=== PATIENT | female | born 1940 | race Caucasian/White ===

== ENCOUNTER 2018-07-08 18:09 | Inpatient (IN) | payer MEDICARE, MEDICAID | END 2018-07-11 16:06 | disposition home or self-care (01) | LOC: ER 18:09 → SUR 3N 07-09 00:45 | DX: A41.9 Sepsis, unspecified organism (principal); N17.0 Acute kidney failure with tubular necrosis; N39.0 Urinary tract infection, site not specified; G62.9 Polyneuropathy, unspecified; N18.9 Chronic kidney disease, unspecified; E78.5 Hyperlipidemia, unspecified; Z90.5 Acquired absence of kidney ==

== ENCOUNTER 2019-02-13 08:43 | Day surgery (SDC) | payer MEDICARE, MEDICAID ==
[2019-02-11 16:06] LABS: BASOPHILS # (AUTO) 0.1 X10'3 (0-0.2); BASOPHILS % (AUTO) 0.3 % (0-1); EOSINOPHILS % (AUTO) 0 % (0-6); HEMATOCRIT 42.9 % (35.0-45.0); HEMOGLOBIN 14.5 g/dl (12.0-16.0); LYMPHOCYTES % (AUTO) 12.4 % (21-51); MEAN CORPUSCULAR HGB CONC 33.8 g/dL (33.0-36.5); MEAN CORPUSCULAR VOLUME 82.8 FL (78-98); MEAN PLATELET VOLUME 8.3 FL (7.4-10.4); MONOCYTES # (AUTO) 0.8 X10'3 (0-0.9); MONOCYTES % (AUTO) 5.2 % (2-12); NEUTROPHILS # (AUTO) 13.3 X10'3 (1.8-7.7); NEUTROPHILS % (AUTO) 82.1 % (42-75); PLATELET COUNT 362 X10'3 (140-440); RED BLOOD COUNT 5.18 X10'6 (4.20-5.60); RED CELL DISTRIBUTION WIDTH 14.6 % (11.5-14.5); WHITE BLOOD COUNT 16.2 X10'3 (4.5-11.0)
[2019-02-11 16:22] LABS: PARTIAL THROMBOPLASTIN TIME 27 SECONDS (22-32)
[2019-02-11 16:25] LABS: ALANINE AMINOTRANSFERASE 20 U/L (12-78); ALBUMIN 3.9 G/DL (3.4-5.0); ALBUMIN/GLOBULIN RATIO 1.1 (1.1-1.5); ALKALINE PHOSPHATASE 99 IU/L (46-116); ANION GAP 6 (8-16); ASPARTATE AMINO TRANSFERASE 8 U/L (10-37); BILIRUBIN,TOTAL 0.4 MG/DL (0.1-1.0); BLOOD UREA NITROGEN 26 MG/DL (7-18); BUN/CREATININE RATIO 19.1 (6.6-38.0); CALCIUM 9.7 MG/DL (8.5-10.1); CHLORIDE 104 MMOL/L (99-107); CREATININE 1.36 MG/DL (0.40-0.90); POTASSIUM 3.9 MMOL/L (3.5-5.1); SODIUM 140 MMOL/L (135-145); TOTAL PROTEIN 7.3 G/DL (6.4-8.2); eGFR 38 ML/MIN
[2019-02-11 16:27] LABS: GLUCOSE 121 MG/DL (70-104)
[2019-02-13] VITALS (10 sets, daily range): BP systolic 127–155; BP diastolic 57–93
[~2019-02-13] VITALS: Ht 167.6 cm; Wt 166.1 kg
[~2019-02-13 08:43] MED LIST: ASPI-1265 PO; ATOR40TA PO; CYCL-394 PO; DULO-31 PO; GABA-532 PO; HYDR-3972 PO
[2019-02-13] MEDS ORDERED: CHOL400T14 PO (09:04)
[2019-02-13] MEDS ORDERED: HYDR25TA4 PO (09:04)
[2019-02-13] MEDS ORDERED: normal saline 1,000 ML IV SCH (09:10)
[2019-02-13] MEDS ORDERED: nitroGLYCERIN 0.4mg SUBLingual tab SL PRN ×2 (09:10→12:25)
[2019-02-13] MEDS ORDERED: LIDOcaine/PRILOcaine 5gm cream TP ONE (09:10)
[2019-02-13] MEDS: LORazepam 0.5 MG tablet PO PRN ×2 (09:14→09:38)
[2019-02-13] MEDS: diphenhydrAMINE 25mg capsule PO PRN ×2 (09:14→09:37)
[2019-02-13] MEDS ORDERED: LIDOcaine 1% (10mg/ml)w/preservative injection 20ml MDV ONE (11:01)
[2019-02-13] MEDS ORDERED: midazolam 2 mg/2 ml injection ONE (11:01)
[2019-02-13] MEDS ORDERED: heparin 1,000unit/ml 10ml vial 10 ML ONE (11:01)
[2019-02-13] MEDS ORDERED: verapamil 2.5 mg/ml inj IV ONE (11:01)
[2019-02-13] MEDS ORDERED: iohexol 350 MG/ML 50ML vial IV ONE (11:01)
[2019-02-13] MEDS ORDERED: nitroGLYCERIN-Tridil 50MG/D5W 250 ML IV ONE (11:01)
[2019-02-13] MEDS ORDERED: fentaNYL/PF 50MCG/1 ML 2ML syringe ONE (11:01)
[2019-02-13] MEDS ORDERED: iohexol 350MG/ML 100ml bottle IV ONE (11:01)
[2019-02-13] MEDS ORDERED: hydrALAZINE 20mg/ml inj. IV ONE (11:50)
[2019-02-13] MEDS ORDERED: HYDROcodone/acetaminophen 5mg/325mg tablet PO PRN (12:20)
[2019-02-13] MEDS ORDERED: normal saline 1000ml 1,000 ML IV SCH (12:20)
[2019-02-13] MEDS ORDERED: ondansetron/PF 4mg/2ml inj IV PRN (12:20)
[2019-02-13] MEDS ORDERED: HYDROcodone/acetaminophen 10/325mg tab PO PRN (12:25)
[2019-02-13] MEDS ORDERED: OXAZEpam 15mg capsule PO PRN (12:25)
[2019-02-13] MEDS ORDERED: proCHLORperazine 10 MG/2 ml inj IV PRN (12:25)
== END 2019-02-13 18:20 | disposition home or self-care (01) ==
LOC: SSTAY O 08:43
PROVIDERS: ATTEND Internal Medicine Cardiovascular Disease
DX: Z01.818 Encounter for other preprocedural examination (principal); I25.10 Atherosclerotic heart disease of native coronary artery without angina pectoris; I10 Essential (primary) hypertension; E78.5 Hyperlipidemia, unspecified; M10.9 Gout, unspecified; Z90.5 Acquired absence of kidney; Z79.899 Other long term (current) drug therapy; F17.210 Nicotine dependence, cigarettes, uncomplicated; G47.30 Sleep apnea, unspecified; Z79.82 Long term (current) use of aspirin; Z79.01 Long term (current) use of anticoagulants; Z91.09 Other allergy status, other than to drugs and biological substances; Z91.040 Latex allergy status; Z88.8 Allergy status to other drugs, medicaments and biological substances
CPT/HCPCS: 36415; 71046; 80053; 85025; 85610; 85730; 93005; 93458; 99152; 99153; C1769; C1894; J0360; J1644; J2001; J2250; J3010; J7030; Q0163; Q9967; A4620; A6258; C1760; J3490

== ENCOUNTER 2019-03-24 12:34 | Emergency (ER) | payer MEDICARE, MEDICAID ==
[~2019-03-24] VITALS: Ht 167.6 cm; Wt 145.4 kg
[~2019-03-24 12:34] MED LIST changes: -ASPI-1265 PO; -ATOR40TA PO; +ATOR40TA71 PO; +CHOL500050 PO; +CYCL-1 PO; -CYCL-394 PO; +HYDR25TA4 PO; +METO-395 PO
--- NOTE | 2019-03-24 14:30 | NUR ---
Spoke with Vicky, states patient has come in to the ER with SOB and needs O2, patient was discharged Monday with O2 that son Eren had arranged, left voice message for keanu Jasno
--- NOTE | 2019-03-24 14:40 | NUR ---
Spoke with patient at bedside along with Dr. Moy, patient states that portable oxygen was delivered at the bedside on Monday but did not know it would not last until through the weekend, she did not call [facility] as instructed when she got home to notify that she was home so concentrator could be delivered, placed call to [facility], waiting for call back
--- NOTE | 2019-03-24 14:46 | NUR ---
Spoke with son Eren, states that he instructed patient several times to call [facility] to have oxygen delivered, he states that patient stated that she did not want to bother anyone over the weekend Spoke with Hilton at [facility], explained patient status, states he will deliever portable oxygen tank to ER BEd [facility] and then will deliver concentrator to patients home, notified nurse Rojo
--- NOTE | 2019-03-24 14:58 | NUR ---
[facility] WILL BRING PORTABLE TANK AND WILL DELIVER CONCENTRATOR AT HOME WITHIN NEXT HOUR
[2019-03-24 16:30] VITALS: BP 141/62
== END 2019-03-24 16:32 | disposition home or self-care (01) ==
LOC: ER 12:35
DX: R06.02 Shortness of breath (principal); E78.00 Pure hypercholesterolemia, unspecified; I10 Essential (primary) hypertension; M19.90 Unspecified osteoarthritis, unspecified site; G89.29 Other chronic pain; Z86.73 Personal history of transient ischemic attack (TIA), and cerebral infarction without residual deficits; Z90.49 Acquired absence of other specified parts of digestive tract; Z90.89 Acquired absence of other organs; Z99.81 Dependence on supplemental oxygen; Z98.890 Other specified postprocedural states; Z88.6 Allergy status to analgesic agent; Z88.8 Allergy status to other drugs, medicaments and biological substances; Z91.018 Allergy to other foods
CPT/HCPCS: 71045; 99284

== ENCOUNTER 2019-04-25 10:42 | Day surgery (SDC) | payer MEDICARE, MEDICAID ==
[~2019-04-25] VITALS: Ht 167.6 cm; Wt 165.5 kg
[~2019-04-25 10:42] MED LIST changes: +AMOX-580 PO; +ASPI-611 PO; -DULO-31 PO; +DULO60CA65 PO
[2019-04-25 11:00] VITALS: BP 135/63
[2019-04-25] MEDS ORDERED: normal saline 1000ml 1,000 ML IV SCH ×2 (11:05→13:48)
[2019-04-25] MEDS ORDERED: HYDR50TA3 PO (11:38)
[2019-04-25] MEDS ORDERED: ONDA8TAB6 PO (11:41)
[2019-04-25] MEDS ORDERED: AXIT5TAB PO (11:42)
[2019-04-25] MEDS ORDERED: LIDOcaine 1%/PF 5ML 10 MG/ML VIAL ONE (12:19)
[2019-04-25] MEDS ORDERED: midazolam 2 mg/2 ml injection ONE (12:59)
[2019-04-25] MEDS ORDERED: heparin sodium, porcine/PF 100unit/ml 5ML syringe ONE (12:59)
[2019-04-25] MEDS ORDERED: fentaNYL/PF 50MCG/1 ML 2ML syringe ONE (12:59)
[2019-04-25] MEDS ORDERED: cefazolin/dext.iso 2gm/100ml 100 ML IV ONE (13:40)
[2019-04-25 13:52] VITALS: BP 142/56
[2019-04-25 14:00] VITALS: BP 159/45
[2019-04-25] MEDS ORDERED: cefazolin/dext.iso 2gm/50ml 50 ML IV ONE (14:00)
[2019-04-25 14:15] VITALS: BP 162/87
[2019-04-25 14:30] VITALS: BP 161/73
[2019-04-25 14:50] VITALS: BP 156/76
== END 2019-04-25 15:20 | disposition home or self-care (01) ==
LOC: SSTAY O 10:42
PROVIDERS: ATTEND Radiology Vascular & Interventional Radiology
DX: C64.1 Malignant neoplasm of right kidney, except renal pelvis (principal); Z85.118 Personal history of other malignant neoplasm of bronchus and lung; Z90.2 Acquired absence of lung [part of]; Z88.8 Allergy status to other drugs, medicaments and biological substances; Z91.018 Allergy to other foods; Z79.82 Long term (current) use of aspirin; Z79.899 Other long term (current) drug therapy; Z90.49 Acquired absence of other specified parts of digestive tract; Z98.890 Other specified postprocedural states; Z90.5 Acquired absence of kidney; Z87.891 Personal history of nicotine dependence
CPT/HCPCS: 36561; 76937; 77001; 99152; 99153; C1769; C1788; C1894; J1642; J2250; J3010

== ENCOUNTER 2019-07-22 13:14 | Emergency (ER) | payer MEDICARE, MEDICAID ==
[~2019-07-22] VITALS: Ht 162.6 cm; Wt 182.0 kg
[~2019-07-22 13:14] MED LIST changes: -AMOX-580 PO; +AXIT5TAB PO; -CYCL-1 PO; -GABA-532 PO; -HYDR25TA4 PO; +HYDR50TA3 PO; +LIDOcaine 1% W/epiNEPHrine 1:100,000 20ml vial ONE; +ONDA8TAB6 PO
[2019-07-22 13:22] VITALS: BP 153/64
[2019-07-22] MEDS ORDERED: DOXY100C76 PO (16:29)
== END 2019-07-22 16:54 | disposition home or self-care (01) ==
LOC: ER 13:16
DX: S01.01XA Laceration without foreign body of scalp, initial encounter (principal); S13.4XXA Sprain of ligaments of cervical spine, initial encounter; E78.00 Pure hypercholesterolemia, unspecified; I10 Essential (primary) hypertension; M19.90 Unspecified osteoarthritis, unspecified site; G89.29 Other chronic pain; Z90.49 Acquired absence of other specified parts of digestive tract; Z90.89 Acquired absence of other organs; Z98.890 Other specified postprocedural states; Z86.73 Personal history of transient ischemic attack (TIA), and cerebral infarction without residual deficits; Z88.8 Allergy status to other drugs, medicaments and biological substances; Z91.018 Allergy to other foods; Z79.82 Long term (current) use of aspirin; Z79.899 Other long term (current) drug therapy; W19.XXXA Unspecified fall, initial encounter; Y93.89 Activity, other specified; Y92.89 Other specified places as the place of occurrence of the external cause; Y99.8 Other external cause status
CPT/HCPCS: 12002; 12004; 70450; 72125; 99285

== ENCOUNTER 2020-05-07 10:12 | Emergency (ER) | payer MEDICARE, MEDICAID ==
[~2020-05-07] VITALS: Ht 170.2 cm; Wt 140.3 kg
[~2020-05-07 10:12] MED LIST changes: -HYDR50TA3 PO; +HYDR50TA4 PO; -LIDOcaine 1% W/epiNEPHrine 1:100,000 20ml vial ONE
[2020-05-07 11:17] LABS: BASOPHILS # (AUTO) 0.1 X10'3 (0-0.2); BASOPHILS % (AUTO) 0.6 % (0-1); EOSINOPHILS # (AUTO) 1.1 X10'3 (0-0.9); EOSINOPHILS % (AUTO) 10.3 % (0-6); HEMATOCRIT 36.3 % (35.0-45.0); HEMOGLOBIN 12.2 g/dl (12.0-16.0); LYMPHOCYTES # (AUTO) 1.9 X10'3 (1.1-4.8); LYMPHOCYTES % (AUTO) 18.4 % (21-51); MEAN CORPUSCULAR HEMOGLOBIN 27.1 PG (27.0-31.0); MEAN CORPUSCULAR HGB CONC 33.7 g/dL (33.0-36.5); MEAN CORPUSCULAR VOLUME 80.4 FL (78-98); MEAN PLATELET VOLUME 7.1 FL (7.4-10.4); MONOCYTES # (AUTO) 0.9 X10'3 (0-0.9); MONOCYTES % (AUTO) 9.1 % (2-12); NEUTROPHILS # (AUTO) 6.3 X10'3 (1.8-7.7); NEUTROPHILS % (AUTO) 61.6 % (42-75); PLATELET COUNT 209 X10'3 (140-440); RED BLOOD COUNT 4.52 X10'6 (4.20-5.60); RED CELL DISTRIBUTION WIDTH 14.4 % (11.5-14.5); WHITE BLOOD COUNT 10.2 X10'3 (4.5-11.0)
[2020-05-07 11:36] LABS: CLARITY,URINE SLIGHTLY CLOUDY (Clear); COLOR,URINE YELLOW (Yellow); GLUCOSE, URINE NEGATIVE (Neg); KETONES,URINE NEGATIVE (Neg); LEUKOCYTE ESTERASE ,URINE NEGATIVE (Neg); NITRITES, URINE NEGATIVE (Neg); OCCULT BLOOD,URINE NEGATIVE (Neg); PH,URINE 5.5 (4.8-8.0); PROTEIN,URINE NEGATIVE (Neg); UROBILINOGEN,URINE 0.2 E.U/dL (0.2-1.0)
[2020-05-07 11:48] LABS: ALBUMIN 3.4 G/DL (3.4-5.0); ANION GAP 8 (8-16); BLOOD UREA NITROGEN 28 MG/DL (7-18); BUN/CREATININE RATIO 20.7 (6.6-38.0); CALCIUM 10.1 MG/DL (8.5-10.1); CHLORIDE 105 MMOL/L (99-107); CREATININE 1.35 MG/DL (0.40-0.90); GLUCOSE 104 MG/DL (70-104); POTASSIUM 4.3 MMOL/L (3.5-5.1); SODIUM 138 MMOL/L (135-145); TOTAL CARBON DIOXIDE 25.5 MMOL/L (24-32); TROPONIN I < 0.04 NG/ML (0.0-0.05); eGFR 38 ML/MIN
[2020-05-07 12:03] LABS: UA COLLECTION TYPE NON-SPECIFIED
[2020-05-07 12:05] LABS: SQUAMOUS EPITHELIAL CELL,UR MANY /LPF (FEW)
[2020-05-07 12:06] LABS: RBC,URINE 0-2 /HPF (0-2); WBC,URINE 0-4 /HPF (0-4)
[2020-05-07 12:07] LABS: BACTERIA,URINE 1+ /HPF (Neg)
[2020-05-07 12:10] LABS: HYALINE CASTS 0-3 /LPF (NEGATIVE)
[2020-05-07 12:12] LABS: MUCUS STRANDS MODERATE /LPF (Neg)
[2020-05-07] MEDS ORDERED: iohexol 350MG/ML 100ml bottle IV ONE (12:41)
[2020-05-07] MEDS ORDERED: normal saline 1000ml 1,000 ML IV ONE (13:05)
[2020-05-07] MEDS ORDERED: HYDROcodone/acetaminophen 5mg/325mg tablet PO ONE (13:15)
--- NOTE | 2020-05-07 14:10 | NUR ---
DR BARRIENTOS NOTIFIED OF PT'S PAIN LEVEL OF 10/10 AFTER BEING GIVEN 10MG NORCO 30 MIN PRIOR
--- NOTE | 2020-05-07 14:16 | NUR ---
PT READY FOR DISCHARGE, CRYING WHEN NURSE INTO THE ROOM, C/O SEVERE PAIN STILL. MD NOTIFIED, TO SPEAK WITH PT
[2020-05-07 14:27] VITALS: BP 130/71
== END 2020-05-07 14:31 | disposition home or self-care (01) ==
LOC: ER 10:13
DX: R07.89 Other chest pain (principal); M54.2 Cervicalgia; E78.00 Pure hypercholesterolemia, unspecified; I10 Essential (primary) hypertension; M19.90 Unspecified osteoarthritis, unspecified site; G89.29 Other chronic pain; F32.9 Major depressive disorder, single episode, unspecified; F17.200 Nicotine dependence, unspecified, uncomplicated; Z86.73 Personal history of transient ischemic attack (TIA), and cerebral infarction without residual deficits; Z85.9 Personal history of malignant neoplasm, unspecified; Z90.49 Acquired absence of other specified parts of digestive tract; Z90.89 Acquired absence of other organs; Z98.890 Other specified postprocedural states; Z88.6 Allergy status to analgesic agent; Z88.8 Allergy status to other drugs, medicaments and biological substances; Z91.018 Allergy to other foods; Z79.82 Long term (current) use of aspirin; Z79.899 Other long term (current) drug therapy
CPT/HCPCS: 36415; 71045; 71275; 80048; 81001; 83880; 84484; 85025; 85610; 93005; 96360; 99285; J7030; Q9967

== ENCOUNTER 2020-05-20 08:42 | Day surgery (SDC) | payer MEDICARE, MEDICAID ==
[~2020-05-20] VITALS: Ht 167.6 cm; Wt 136.4 kg
[2020-05-20 08:55] VITALS: BP 152/73
[2020-05-20] MEDS ORDERED: fentaNYL/PF 50MCG/1 ML 2ML syringe ONE (08:59)
[2020-05-20] MEDS ORDERED: MIDAZolam 1 MG/ML 5ML VIAL ONE (09:00)
[2020-05-20 11:20] VITALS: BP 152/53
[2020-05-20 11:30] VITALS: BP 148/71
[2020-05-20 11:40] VITALS: BP 156/56
[2020-05-20 11:50] VITALS: BP 141/85
== END 2020-05-20 12:05 | disposition home or self-care (01) ==
LOC: GI LAB 08:42
PROVIDERS: ATTEND Internal Medicine Gastroenterology
DX: Z12.11 Encounter for screening for malignant neoplasm of colon (principal); D12.2 Benign neoplasm of ascending colon; D12.3 Benign neoplasm of transverse colon; D12.5 Benign neoplasm of sigmoid colon; K57.30 Diverticulosis of large intestine without perforation or abscess without bleeding; I10 Essential (primary) hypertension; C34.90 Malignant neoplasm of unspecified part of unspecified bronchus or lung; E66.9 Obesity, unspecified; Z68.42 Body mass index [BMI] 45.0-49.9, adult; Z86.73 Personal history of transient ischemic attack (TIA), and cerebral infarction without residual deficits; Z87.891 Personal history of nicotine dependence; Z86.010 Personal history of colon polyps; Z88.8 Allergy status to other drugs, medicaments and biological substances; Z91.018 Allergy to other foods
CPT/HCPCS: 45385; 99153; C1773; G0500; J2250; J3010; J7040; 45380; 88305; 99152; A4620

== ENCOUNTER 2021-04-13 13:11 | Emergency (ER) | payer MEDICARE, MEDICAID ==
[~2021-04-13] VITALS: Ht 167.6 cm; Wt 154.6 kg
[2021-04-13] MEDS ORDERED: HYDROcodone/acetaminophen 5mg/325mg tablet PO ONE (13:20)
[2021-04-13] MEDS ORDERED: ondansetron 4mg rapidly disintigrating tab PO ONE (13:20)
[2021-04-13] MEDS ORDERED: acetaminophen 325mg tablet PO ONE (13:20)
--- NOTE | 2021-04-13 13:45 | NUR ---
To CT at this time via wheelchair.
[2021-04-13] MEDS ORDERED: furosemide 40mg/4ml inj IV ONE (15:15)
[2021-04-13 15:30] VITALS: BP 106/69
[2021-04-13 15:40] LABS: BASOPHILS # (AUTO) 0.1 X10'3 (0-0.2); BASOPHILS % (AUTO) 0.8 % (0-1); EOSINOPHILS # (AUTO) 0.6 X10'3 (0-0.9); EOSINOPHILS % (AUTO) 7.5 % (0-6); HEMATOCRIT 38.8 % (35.0-45.0); HEMOGLOBIN 13.2 g/dl (12.0-16.0); LYMPHOCYTES # (AUTO) 1.5 X10'3 (1.1-4.8); LYMPHOCYTES % (AUTO) 20.9 % (21-51); MEAN CORPUSCULAR HEMOGLOBIN 28.3 PG (27.0-31.0); MEAN CORPUSCULAR HGB CONC 34.1 g/dL (33.0-36.5); MEAN CORPUSCULAR VOLUME 83.2 FL (78-98); MEAN PLATELET VOLUME 7.3 FL (7.4-10.4); MONOCYTES # (AUTO) 0.6 X10'3 (0-0.9); MONOCYTES % (AUTO) 7.9 % (2-12); NEUTROPHILS # (AUTO) 4.6 X10'3 (1.8-7.7); NEUTROPHILS % (AUTO) 62.9 % (42-75); PLATELET COUNT 311 X10'3 (140-440); RED BLOOD COUNT 4.66 X10'6 (4.20-5.60); RED CELL DISTRIBUTION WIDTH 13.7 % (11.5-14.5); WHITE BLOOD COUNT 7.4 X10'3 (4.5-11.0)
[2021-04-13 16:26] LABS: ALANINE AMINOTRANSFERASE 31 U/L (12-78); ALBUMIN 3.7 G/DL (3.4-5.0); ALBUMIN/GLOBULIN RATIO 1.3 (1.1-1.5); ANION GAP 8 (8-16); ASPARTATE AMINO TRANSFERASE 39 U/L (10-37); BILIRUBIN,TOTAL 0.3 MG/DL (0.1-1.0); BLOOD UREA NITROGEN 20 MG/DL (7-18); CALCIUM 9.7 MG/DL (8.5-10.1); CHLORIDE 103 MMOL/L (99-107); CREATININE 1.82 MG/DL (0.40-0.90); GLUCOSE 118 MG/DL (70-104); POTASSIUM 4.4 MMOL/L (3.5-5.1); SODIUM 139 MMOL/L (135-145); TOTAL CARBON DIOXIDE 27.6 MMOL/L (24-32); TOTAL PROTEIN 6.6 G/DL (6.4-8.2); eGFR 27 ML/MIN
== END 2021-04-13 17:00 | disposition home or self-care (01) ==
LOC: ER 13:12
DX: S00.12XA Contusion of left eyelid and periocular area, initial encounter (principal); S05.12XA Contusion of eyeball and orbital tissues, left eye, initial encounter; S00.03XA Contusion of scalp, initial encounter; S00.83XA Contusion of other part of head, initial encounter; S09.90XA Unspecified injury of head, initial encounter; I87.8 Other specified disorders of veins; R60.0 Localized edema; R05.9 Cough, unspecified; E78.00 Pure hypercholesterolemia, unspecified; I10 Essential (primary) hypertension; M19.90 Unspecified osteoarthritis, unspecified site; G89.29 Other chronic pain; Z86.73 Personal history of transient ischemic attack (TIA), and cerebral infarction without residual deficits; Z85.9 Personal history of malignant neoplasm, unspecified; Z90.5 Acquired absence of kidney; Z88.8 Allergy status to other drugs, medicaments and biological substances; Z91.018 Allergy to other foods; Z79.899 Other long term (current) drug therapy; W18.09XA Striking against other object with subsequent fall, initial encounter; Z91.81 History of falling; Y93.89 Activity, other specified; Y92.89 Other specified places as the place of occurrence of the external cause; Y99.8 Other external cause status
CPT/HCPCS: 36415; 70450; 70486; 71045; 72125; 80053; 83880; 85025; 93005; 96374; 99285; J1940

== ENCOUNTER 2022-02-14 09:13 | Emergency (ER) | payer BC, MEDICAID ==
[~2022-02-14] VITALS: Ht 170.2 cm; Wt 170.4 kg
[2022-02-14 09:34] VITALS: BP 145/65
[2022-02-14] MEDS ORDERED: ondansetron/PF 4mg/2ml inj IV ONE (13:30)
[2022-02-14] MEDS ORDERED: morphine 4 MG/ML inj SYRINge IV ONE (13:30)
[2022-02-14 14:00] LABS: CLARITY,URINE CLEAR (Clear); COLOR,URINE YELLOW (Yellow); GLUCOSE, URINE NEGATIVE (Neg); KETONES,URINE NEGATIVE (Neg); LEUKOCYTE ESTERASE ,URINE NEGATIVE (Neg); NITRITES, URINE NEGATIVE (Neg); OCCULT BLOOD,URINE NEGATIVE (Neg); PROTEIN,URINE NEGATIVE (Neg); UROBILINOGEN,URINE 0.2 E.U/dL (0.2-1.0)
[2022-02-14 14:04] LABS: BASOPHILS # (AUTO) 0.1 X10'3 (0-0.2); BASOPHILS % (AUTO) 0.8 % (0-1); EOSINOPHILS # (AUTO) 0.2 X10'3 (0-0.9); EOSINOPHILS % (AUTO) 2.1 % (0-6); HEMATOCRIT 40.8 % (35.0-45.0); HEMOGLOBIN 13.7 g/dl (12.0-16.0); LYMPHOCYTES # (AUTO) 2.4 X10'3 (1.1-4.8); LYMPHOCYTES % (AUTO) 29.3 % (21-51); MEAN CORPUSCULAR HEMOGLOBIN 27.8 PG (27.0-31.0); MEAN CORPUSCULAR HGB CONC 33.4 g/dL (33.0-36.5); MEAN PLATELET VOLUME 7.5 FL (7.4-10.4); MONOCYTES # (AUTO) 0.6 X10'3 (0-0.9); MONOCYTES % (AUTO) 7.6 % (2-12); NEUTROPHILS # (AUTO) 4.9 X10'3 (1.8-7.7); NEUTROPHILS % (AUTO) 60.2 % (42-75); PLATELET COUNT 290 X10'3 (140-440); RED BLOOD COUNT 4.92 X10'6 (4.20-5.60); WHITE BLOOD COUNT 8.1 X10'3 (4.5-11.0)
[2022-02-14 14:13] LABS: UA COLLECTION TYPE CLN CATCH MIDSTREAM
[2022-02-14 14:17] LABS: ALANINE AMINOTRANSFERASE 29 U/L (12-78); ALBUMIN 3.6 G/DL (3.4-5.0); ALBUMIN/GLOBULIN RATIO 1.2 (1.1-1.5); ALKALINE PHOSPHATASE 82 IU/L (46-116); ANION GAP 12 (8-16); ASPARTATE AMINO TRANSFERASE 41 U/L (10-37); BILIRUBIN,TOTAL 0.8 MG/DL (0.1-1.0); BLOOD UREA NITROGEN 16 MG/DL (7-18); CALCIUM 9.7 MG/DL (8.5-10.1); CHLORIDE 103 MMOL/L (99-107); CREATININE 1.46 MG/DL (0.40-0.90); GLUCOSE 120 MG/DL (70-104); LIPASE 67 U/L (73-393); POTASSIUM 3.8 MMOL/L (3.5-5.1); SODIUM 139 MMOL/L (135-145); TOTAL CARBON DIOXIDE 23.8 MMOL/L (24-32); TOTAL PROTEIN 6.7 G/DL (6.4-8.2); eGFR 34 ML/MIN
[2022-02-14] MEDS ORDERED: iohexol 300mg/ml 100ml inj. ONE (14:55)
--- NOTE | 2022-02-14 15:01 | NUR ---
I agree with general assessment performed by Venita GAGE.
[2022-02-14] MEDS ORDERED: PRED20TA PO (16:50)
== END 2022-02-14 17:11 | disposition home or self-care (01) ==
LOC: ER 09:14
DX: M54.41 Lumbago with sciatica, right side (principal); R10.30 Lower abdominal pain, unspecified; E78.00 Pure hypercholesterolemia, unspecified; I10 Essential (primary) hypertension; M19.90 Unspecified osteoarthritis, unspecified site; G89.29 Other chronic pain; F32.A Depression, unspecified; Z86.73 Personal history of transient ischemic attack (TIA), and cerebral infarction without residual deficits; Z85.118 Personal history of other malignant neoplasm of bronchus and lung; Z90.49 Acquired absence of other specified parts of digestive tract; Z90.89 Acquired absence of other organs; Z98.890 Other specified postprocedural states; Z88.6 Allergy status to analgesic agent; Z88.8 Allergy status to other drugs, medicaments and biological substances; Z79.82 Long term (current) use of aspirin; Z79.899 Other long term (current) drug therapy
CPT/HCPCS: 36415; 74177; 80053; 81003; 83690; 85025; 96374; 96375; 99285; J2270; J2405; J3490; Q9967

== ENCOUNTER 2023-12-09 11:11 | Inpatient (IN) | payer BC, MEDICAID ==
[~2023-12-09] VITALS: Ht 167.6 cm; Wt 185.5 kg
[~2023-12-09 11:11] MED LIST changes: -ASPI-611 PO; -AXIT5TAB PO; +LINE600T11 PO; +METO10TA3 PO; +ONDA-243 PO; -ONDA8TAB6 PO
[2023-12-09 11:53] LABS: BASOPHILS % (AUTO) 0.3 % (0-1); EOSINOPHILS % (AUTO) 0.4 % (0-6); HEMATOCRIT 38.7 % (35.0-45.0); HEMOGLOBIN 12.8 g/dl (12.0-16.0); LYMPHOCYTES # (AUTO) 1.7 X10'3 (1.1-4.8); LYMPHOCYTES % (AUTO) 21.4 % (21-51); MEAN CORPUSCULAR HEMOGLOBIN 28.4 PG (27.0-31.0); MEAN PLATELET VOLUME 6.9 FL (7.4-10.4); MONOCYTES # (AUTO) 0.6 X10'3 (0-0.9); NEUTROPHILS # (AUTO) 5.6 X10'3 (1.8-7.7); NEUTROPHILS % (AUTO) 70.9 % (42-75); PLATELET COUNT 367 X10'3 (140-440); RED BLOOD COUNT 4.51 X10'6 (4.20-5.60); RED CELL DISTRIBUTION WIDTH 13.9 % (11.5-14.5); WHITE BLOOD COUNT 7.9 X10'3 (4.5-11.0)
[2023-12-09 12:16] LABS: ALBUMIN 2.7 G/DL (3.4-5.0); ANION GAP 8 (8-16); BLOOD UREA NITROGEN 28 MG/DL (7-18); BUN/CREATININE RATIO 14.5 (10.0-20.0); CALCIUM 9.2 MG/DL (8.5-10.1); CHLORIDE 108 MMOL/L (99-107); CREATININE 1.93 MG/DL (0.40-0.90); GLUCOSE 136 MG/DL (70-104); POTASSIUM 3.6 MMOL/L (3.5-5.1); PRO BRAIN NATRIURETIC PEPTIDE 183 PG/ML (0-450); SODIUM 141 MMOL/L (135-145); TOTAL CARBON DIOXIDE 25.4 MMOL/L (24-32); eCRCL 21 ML/MIN; eGFR 25 ML/MIN
[2023-12-09] MEDS ORDERED: PRED5TAB PO (12:57)
[2023-12-09] MEDS ORDERED: magnesium sulf-water 4G/100mL 100 ML IV PRN (13:00)
[2023-12-09] MEDS ORDERED: magnesium sulf-water 2g/50mL 50 ML IV PRN (13:00)
[2023-12-09] MEDS ORDERED: acetaminophen 325mg tablet PO PRN (13:00)
[2023-12-09] MEDS ORDERED: potassium Cl 20 mEq SR tablet PO PRN ×2 (13:00)
[2023-12-09] MEDS ORDERED: potassium Cl 40MEQ/1/2NS 520ml 520 ML IV PRN (13:00)
[2023-12-09] MEDS ORDERED: magnesium Cl slow-release 64mg tablet PO PRN (13:00)
[2023-12-09] MEDS: normal saline 1000ml 1,000 ML IV SCH (13:52)
[2023-12-09] MEDS: vancomycin/NS 1 GM ADD-VANTAGE 250 ML IV SCH (14:08)
[2023-12-09 16:30] VITALS: BP 167/50; PULSE 111; RESP 18; TEMP 100; O2SAT 94
[2023-12-09] MEDS: ondansetron/PF 4mg/2ml inj IV PRN (17:47)
[2023-12-09 18:00] VITALS: BP 139/99; PULSE 110; RESP 20; TEMP 98.6; O2SAT 96
[2023-12-09] MEDS: K and/or MAG REPLACEMENT MC SCH (19:22)
[2023-12-09] MEDS: HYDROcodone/acetaminophen 5mg/325mg tablet PO PRN (19:28)
[2023-12-09] MEDS: docusate sod 100mg capsule PO SCH (19:28)
[2023-12-09] MEDS: piperacillin/tazo 4.5gm/100ml 100 ML IV SCH (19:28)
[2023-12-09 20:00] VITALS: RESP 20; O2SAT 96
[2023-12-09 21:18] LABS: BILIRUBIN,URINE NEGATIVE (Neg); CLARITY,URINE SLIGHTLY CLOUDY (Clear); COLOR,URINE YELLOW (Yellow); GLUCOSE, URINE NEGATIVE (Neg); KETONES,URINE NEGATIVE (Neg); LEUKOCYTE ESTERASE ,URINE TRACE (Neg); NITRITES, URINE NEGATIVE (Neg); OCCULT BLOOD,URINE NEGATIVE (Neg); PROTEIN,URINE NEGATIVE (Neg); UROBILINOGEN,URINE 0.2 E.U/dL (0.2-1.0)
[2023-12-09 21:22] LABS: UA COLLECTION TYPE CLN CATCH MIDSTREAM
[2023-12-09 21:26] LABS: RBC,URINE 0-2 /HPF (0-2); WBC,URINE 0-4 /HPF (0-4)
[2023-12-09 21:27] LABS: BACTERIA,URINE FEW /HPF (Neg); SQUAMOUS EPITHELIAL CELL,UR MANY /LPF (FEW)
[2023-12-09 22:00] VITALS: BP 109/47; PULSE 101; RESP 17; TEMP 99.4; O2SAT 97
[2023-12-10 06:00] VITALS: BP 127/53; PULSE 91; RESP 19; TEMP 98.3; O2SAT 97
[2023-12-10 06:00] LABS: BASOPHILS % (AUTO) 0.2 % (0-1); EOSINOPHILS % (AUTO) 0.5 % (0-6); HEMATOCRIT 34.4 % (35.0-45.0); HEMOGLOBIN 11.4 g/dl (12.0-16.0); LYMPHOCYTES # (AUTO) 1.3 X10'3 (1.1-4.8); MEAN CORPUSCULAR HEMOGLOBIN 28.3 PG (27.0-31.0); MEAN CORPUSCULAR HGB CONC 33.2 g/dL (33.0-36.5); MEAN CORPUSCULAR VOLUME 85.1 FL (78-98); MEAN PLATELET VOLUME 7.4 FL (7.4-10.4); MONOCYTES # (AUTO) 0.6 X10'3 (0-0.9); MONOCYTES % (AUTO) 7.4 % (2-12); NEUTROPHILS # (AUTO) 6.2 X10'3 (1.8-7.7); NEUTROPHILS % (AUTO) 75.9 % (42-75); PLATELET COUNT 301 X10'3 (140-440); RED BLOOD COUNT 4.04 X10'6 (4.20-5.60); RED CELL DISTRIBUTION WIDTH 13.7 % (11.5-14.5); WHITE BLOOD COUNT 8.2 X10'3 (4.5-11.0)
[2023-12-10 06:28] LABS: ALBUMIN 2.3 G/DL (3.4-5.0); ANION GAP 7 (8-16); BLOOD UREA NITROGEN 26 MG/DL (7-18); BUN/CREATININE RATIO 14.8 (10.0-20.0); CALCIUM 8.7 MG/DL (8.5-10.1); CHLORIDE 109 MMOL/L (99-107); CREATININE 1.76 MG/DL (0.40-0.90); GLUCOSE 120 MG/DL (70-104); MAGNESIUM 1.6 MG/DL (1.5-2.4); SODIUM 140 MMOL/L (135-145); TOTAL CARBON DIOXIDE 23.9 MMOL/L (24-32); eCRCL 23 ML/MIN; eGFR 28 ML/MIN
[2023-12-10 10:00] VITALS: BP 113/50; PULSE 99; RESP 18; TEMP 98.9; O2SAT 100
[2023-12-10 17:30] LABS: BILIRUBIN,URINE NEGATIVE (Neg); CLARITY,URINE CLEAR (Clear); COLOR,URINE YELLOW (Yellow); GLUCOSE, URINE NEGATIVE (Neg); KETONES,URINE NEGATIVE (Neg); LEUKOCYTE ESTERASE ,URINE NEGATIVE (Neg); NITRITES, URINE NEGATIVE (Neg); OCCULT BLOOD,URINE NEGATIVE (Neg); PH,URINE 5.5 (4.8-8.0); PROTEIN,URINE NEGATIVE (Neg); UROBILINOGEN,URINE 0.2 E.U/dL (0.2-1.0)
[2023-12-10 17:39] LABS: UA COLLECTION TYPE NON-SPECIFIED
[2023-12-10 18:30] VITALS: BP 116/62; PULSE 104; RESP 18; TEMP 98.5; O2SAT 94
[2023-12-10] MEDS: diphenhydrAMINE 25mg capsule PO ONE (22:37)
[2023-12-10 23:26] VITALS: RESP 18; O2SAT 94
[2023-12-11] VITALS (8 sets, daily range): BP systolic 104–139; BP diastolic 37–61; PULSE 90–100; RESP 14–20; TEMP 97–98.4; O2SAT 96–99
[2023-12-11] MEDS: VANCOMYCIN LEVEL IV ONE (01:30)
[2023-12-11] MEDS: diphenhydrAMINE 25mg capsule PO ONE (03:41)
[2023-12-11 06:11] LABS: BASOPHILS % (AUTO) 0.1 % (0-1); EOSINOPHILS # (AUTO) 0.1 X10'3 (0-0.9); EOSINOPHILS % (AUTO) 0.6 % (0-6); HEMATOCRIT 37.7 % (35.0-45.0); HEMOGLOBIN 12.2 g/dl (12.0-16.0); LYMPHOCYTES # (AUTO) 1.6 X10'3 (1.1-4.8); LYMPHOCYTES % (AUTO) 18.7 % (21-51); MEAN CORPUSCULAR HEMOGLOBIN 27.9 PG (27.0-31.0); MEAN CORPUSCULAR HGB CONC 32.3 g/dL (33.0-36.5); MEAN CORPUSCULAR VOLUME 86.5 FL (78-98); MEAN PLATELET VOLUME 7.6 FL (7.4-10.4); MONOCYTES # (AUTO) 0.7 X10'3 (0-0.9); MONOCYTES % (AUTO) 8.1 % (2-12); NEUTROPHILS # (AUTO) 6.3 X10'3 (1.8-7.7); NEUTROPHILS % (AUTO) 72.5 % (42-75); PLATELET COUNT 325 X10'3 (140-440); RED BLOOD COUNT 4.35 X10'6 (4.20-5.60); WHITE BLOOD COUNT 8.6 X10'3 (4.5-11.0)
[2023-12-11 06:19] LABS: ALBUMIN 2.2 G/DL (3.4-5.0); ANION GAP 4 (8-16); BLOOD UREA NITROGEN 26 MG/DL (7-18); BUN/CREATININE RATIO 13.6 (10.0-20.0); CHLORIDE 109 MMOL/L (99-107); CREATININE 1.91 MG/DL (0.40-0.90); GLUCOSE 124 MG/DL (70-104); MAGNESIUM 1.7 MG/DL (1.5-2.4); POTASSIUM 3.9 MMOL/L (3.5-5.1); SODIUM 139 MMOL/L (135-145); eCRCL 21 ML/MIN; eGFR 25 ML/MIN
[2023-12-11] MEDS: diphenhydrAMINE 25mg capsule PO PRN (14:06)
[2023-12-11] MEDS: heparin, porcine 5000 units/ml vial SQ SCH (20:06)
[2023-12-12] VITALS (8 sets, daily range): BP systolic 102–136; BP diastolic 40–46; PULSE 72–94; RESP 14–18; TEMP 97.1–98.5; O2SAT 95–99
[2023-12-12 06:10] LABS: ALBUMIN 2.1 G/DL (3.4-5.0); ANION GAP 4 (8-16); BLOOD UREA NITROGEN 25 MG/DL (7-18); BUN/CREATININE RATIO 11.5 (10.0-20.0); CALCIUM 8.7 MG/DL (8.5-10.1); CHLORIDE 110 MMOL/L (99-107); CREATININE 2.18 MG/DL (0.40-0.90); GLUCOSE 124 MG/DL (70-104); MAGNESIUM 1.7 MG/DL (1.5-2.4); POTASSIUM 3.8 MMOL/L (3.5-5.1); SODIUM 139 MMOL/L (135-145); TOTAL CARBON DIOXIDE 25.5 MMOL/L (24-32); eCRCL 19 ML/MIN; eGFR 22 ML/MIN
[2023-12-12 06:13] LABS: BASOPHILS % (AUTO) 0.4 % (0-1); EOSINOPHILS # (AUTO) 0.1 X10'3 (0-0.9); HEMOGLOBIN 12.4 g/dl (12.0-16.0); LYMPHOCYTES # (AUTO) 1.6 X10'3 (1.1-4.8); LYMPHOCYTES % (AUTO) 17.5 % (21-51); MEAN CORPUSCULAR HEMOGLOBIN 28.3 PG (27.0-31.0); MEAN CORPUSCULAR HGB CONC 32.6 g/dL (33.0-36.5); MEAN PLATELET VOLUME 7.3 FL (7.4-10.4); MONOCYTES # (AUTO) 0.6 X10'3 (0-0.9); MONOCYTES % (AUTO) 6.7 % (2-12); NEUTROPHILS # (AUTO) 6.8 X10'3 (1.8-7.7); NEUTROPHILS % (AUTO) 74.4 % (42-75); PLATELET COUNT 326 X10'3 (140-440); RED BLOOD COUNT 4.37 X10'6 (4.20-5.60); WHITE BLOOD COUNT 9.2 X10'3 (4.5-11.0)
[2023-12-12] MEDS: cefepime 2g/NS 100ml ADVANTAGE 100 ML IV SCH (12:58)
[2023-12-13] VITALS (8 sets, daily range): BP systolic 100–148; BP diastolic 30–56; PULSE 91–101; RESP 13–20; TEMP 97.2–98.6; O2SAT 94–98
[2023-12-13 06:09] LABS: ANION GAP 5 (8-16); BLOOD UREA NITROGEN 21 MG/DL (7-18); BUN/CREATININE RATIO 11.7 (10.0-20.0); CALCIUM 9.2 MG/DL (8.5-10.1); CHLORIDE 111 MMOL/L (99-107); CREATININE 1.79 MG/DL (0.40-0.90); GLUCOSE 114 MG/DL (70-104); POTASSIUM 3.8 MMOL/L (3.5-5.1); SODIUM 141 MMOL/L (135-145); TOTAL CARBON DIOXIDE 24.8 MMOL/L (24-32); eCRCL 23 ML/MIN; eGFR 27 ML/MIN
[2023-12-13 06:10] LABS: ALBUMIN 2.1 G/DL (3.4-5.0); MAGNESIUM 1.8 MG/DL (1.5-2.4)
[2023-12-13 06:20] LABS: BASOPHILS % (AUTO) 0.1 % (0-1); EOSINOPHILS # (AUTO) 0.1 X10'3 (0-0.9); EOSINOPHILS % (AUTO) 1.8 % (0-6); HEMATOCRIT 37.9 % (35.0-45.0); HEMOGLOBIN 12.2 g/dl (12.0-16.0); LYMPHOCYTES # (AUTO) 1.6 X10'3 (1.1-4.8); LYMPHOCYTES % (AUTO) 19.6 % (21-51); MEAN CORPUSCULAR HGB CONC 32.3 g/dL (33.0-36.5); MEAN CORPUSCULAR VOLUME 86.8 FL (78-98); MEAN PLATELET VOLUME 7.4 FL (7.4-10.4); MONOCYTES # (AUTO) 0.7 X10'3 (0-0.9); MONOCYTES % (AUTO) 8.1 % (2-12); NEUTROPHILS # (AUTO) 5.7 X10'3 (1.8-7.7); NEUTROPHILS % (AUTO) 70.4 % (42-75); PLATELET COUNT 329 X10'3 (140-440); RED BLOOD COUNT 4.36 X10'6 (4.20-5.60); WHITE BLOOD COUNT 8.1 X10'3 (4.5-11.0)
[2023-12-13] MEDS: linezolid 600mg/300ml PREMIX 300 ML IV SCH (11:36)
[2023-12-13] MEDS: methylPREDNISolone sod succ 125mg/2ml vial IV SCH (16:42)
[2023-12-14 05:44] LABS: BASOPHILS % (AUTO) 0.3 % (0-1); EOSINOPHILS # (AUTO) 0.1 X10'3 (0-0.9); EOSINOPHILS % (AUTO) 0.6 % (0-6); HEMATOCRIT 38.1 % (35.0-45.0); HEMOGLOBIN 12.3 g/dl (12.0-16.0); LYMPHOCYTES # (AUTO) 1.4 X10'3 (1.1-4.8); LYMPHOCYTES % (AUTO) 14.1 % (21-51); MEAN CORPUSCULAR HEMOGLOBIN 28.1 PG (27.0-31.0); MEAN CORPUSCULAR HGB CONC 32.4 g/dL (33.0-36.5); MEAN CORPUSCULAR VOLUME 86.8 FL (78-98); MEAN PLATELET VOLUME 7.4 FL (7.4-10.4); MONOCYTES # (AUTO) 0.1 X10'3 (0-0.9); MONOCYTES % (AUTO) 1.1 % (2-12); NEUTROPHILS % (AUTO) 83.9 % (42-75); PLATELET COUNT 343 X10'3 (140-440); RED BLOOD COUNT 4.39 X10'6 (4.20-5.60); RED CELL DISTRIBUTION WIDTH 13.6 % (11.5-14.5); WHITE BLOOD COUNT 9.6 X10'3 (4.5-11.0)
[2023-12-14 05:52] LABS: ALBUMIN 2.4 G/DL (3.4-5.0); ANION GAP 5 (8-16); BLOOD UREA NITROGEN 18 MG/DL (7-18); BUN/CREATININE RATIO 9.6 (10.0-20.0); CALCIUM 9.5 MG/DL (8.5-10.1); CHLORIDE 107 MMOL/L (99-107); CREATININE 1.87 MG/DL (0.40-0.90); GLUCOSE 242 MG/DL (70-104); POTASSIUM 4.4 MMOL/L (3.5-5.1); SODIUM 137 MMOL/L (135-145); TOTAL CARBON DIOXIDE 24.7 MMOL/L (24-32); eCRCL 22 ML/MIN; eGFR 26 ML/MIN
[2023-12-14 06:00] VITALS: BP 136/68; PULSE 96; RESP 20; TEMP 98.3; O2SAT 98
[2023-12-14 10:00] VITALS: BP 128/58; PULSE 97; RESP 20; TEMP 98; O2SAT 98
[2023-12-14] MEDS ORDERED: LINE600T12 PO (10:08)
[2023-12-14] MEDS ORDERED: PRED10TA23 PO (10:08)
[2023-12-14] MEDS ORDERED: ASPI81TA52 PO (16:22)
[2023-12-14] MEDS ORDERED: ATOR20TA66 PO (16:24)
[2023-12-14] MEDS ORDERED: POTA-192 PO (21:01)
[2023-12-14] MEDS ORDERED: FURO-150 PO (21:01)
== END 2023-12-14 14:46 | disposition home or self-care (01) | DRG 871 ==
LOC: ER 11:11 → ED HOLD 13:01 → ORTHO 4S 16:15 → SUR 3N 12-10 17:40
PROVIDERS: ADMIT Internal Medicine; ATTEND Internal Medicine
DX: A41.9 Sepsis, unspecified organism (principal); N17.0 Acute kidney failure with tubular necrosis; L03.115 Cellulitis of right lower limb; Z68.44 Body mass index [BMI] 60.0-69.9, adult; L03.116 Cellulitis of left lower limb; I12.9 Hypertensive chronic kidney disease with stage 1 through stage 4 chronic kidney disease, or unspecified chronic kidney disease; Z96.653 Presence of artificial knee joint, bilateral; E78.00 Pure hypercholesterolemia, unspecified; E66.01 Morbid (severe) obesity due to excess calories; D64.9 Anemia, unspecified; N18.9 Chronic kidney disease, unspecified; F32.A Depression, unspecified; G89.29 Other chronic pain; Z88.5 Allergy status to narcotic agent; Z88.8 Allergy status to other drugs, medicaments and biological substances; Z91.018 Allergy to other foods; Z90.5 Acquired absence of kidney; Z86.73 Personal history of transient ischemic attack (TIA), and cerebral infarction without residual deficits; Z85.528 Personal history of other malignant neoplasm of kidney; Z88.1 Allergy status to other antibiotic agents; Z85.118 Personal history of other malignant neoplasm of bronchus and lung
CPT/HCPCS: 36415; 71045; 80048; 80202; 81001; 81003; 83605; 83735; 83880; 84145; 84484; 85025; 87040; 87081; 93005; 93970; 97116; 97161; 97530; 99285; A4615; A6223; A6253; A6258; A6446; A6449; G0378; J0692; J1644; J2020; J2405; J2543; J2919; J3370; J7030; Q0163